=== PATIENT | male | born 1955 | race Caucasian/White ===

== ENCOUNTER 2019-01-29 11:26 | Emergency (ER) | payer MEDICARE, MEDICAID ==
[2019-01-29 11:47] VITALS: BP 136/89
--- NOTE | 2019-01-29 12:06 | EDM.PDOC ---
ED HPI GENERAL MEDICAL PROBLEM - General Chief Complaint: General Stated Complaint: chf, [place] gain, sob Time Seen by Provider: 01/29/19 11:30 Source of Information: Reports: Patient History Limitations: Reports: No Limitations - History of Present Illness INITIAL COMMENTS - FREE TEXT/NARRATIVE: According to patient he claims that he has gained 11 lbs of weight since Sunday. He does have CHF ,so increased his Lasix from 40mg daily to 80mg daily for past 2 days and he feels like it has not helped. He can do most of the activities. if he walk long distance, he does get short of breath. No swelling of the legs. No cough, chest pain or chest tightness. No excessive nocturia, no shortness of breath with routine daily activities. He is comfortable in the emergency room. As he has gained weight called his stock room manager's office and was told to go to emergency room. Pt claims he has been having daily bowel movements and not excessively thirsty. Associated Symptoms: Reports: Shortness of Breath. Denies: Confusion, Chest Pain, Cough, Diaphoresis, Fever/Chills, Headaches, Loss of Appetite, Nausea/ Vomiting, Rash, Seizure, Syncope, Weakness - Related Data Allergies Allergy/AdvReac Type Severity Reaction Status Date / Time lisinopril Allergy Severe Facial Verified 01/29/19 11:36 Swelling grape Allergy Facial Verified 01/29/19 11:36 Swelling Home Meds: Home Meds Nitroglycerin [Nitrostat] 0.4 mg SL ASDIRECTED PRN 09/04/13 [History] Venlafaxine HCl [Venlafaxine ER] 150 mg PO DAILY 09/04/13 [History] Aspirin [Inez Chewable] 81 mg PO DAILY 09/08/13 [History] Furosemide [Lasix] 40 mg PO DAILY 07/06/14 [History] Carvedilol 1.5 tab PO BID 05/02/15 [History] Isosorbide Mononitrate [Isosorbide Mononitrate ER] 60 mg PO DAILY 05/02/15 [ History] Spironolactone [Aldactone] 25 mg PO DAILY 05/02/15 [History] Clopidogrel [Plavix] 75 mg PO DAILY 01/29/19 [History] atorvaSTATin Calcium [Lipitor] 40 mg PO DAILY 01/29/19 [History] predniSONE [Prednisone] 5 mg PO DAILY 01/29/19 [History] Past Medical History Other HEENT History: allergic reaction to lisinopril 2 yrs ago involved the tonue Cardiovascular History: Reports: Heart Failure, High Cholesterol, Hypertension, [place] Neurological History: Reports: CVA Endocrine/Metabolic History: Reports: Hyperthyroidism - Infectious Disease History Infectious Disease History: Reports: Chicken Pox, Measles, Mumps - Past Surgical History Cardiovascular Surgical History: Reports: Pacer Other Cardiovascular Surgeries/Procedures: defibrillator and heart pacemaker two years ago GI Surgical History: Reports: None Endocrine Surgical History: Reports: None Neurological Surgical History: Reports: None Social & Family History - Tobacco Use Smoking Status *Q: Former Smoker Years of Tobacco use: 40 Used Tobacco, but Quit: Yes Month/Year Tobacco Last Used: 03/2014 Second Hand Smoke Exposure: No - Caffeine Use Caffeine Use: Reports: Coffee - Recreational Drug Use Recreational Drug Use: No ED ROS GENERAL - Review of Systems Review Of Systems: See Below Constitutional: Denies: Fever, Decreased Appetite HEENT: Denies: Rhinitis, Sinus Problem, Throat Pain Respiratory: Reports: Shortness of Breath. Denies: Pleuritic Chest Pain, Cough , Sputum Cardiovascular: Denies: Chest Pain, Edema, Lightheadedness, Orthopnea, Palpitations, PND GI/Abdominal: Denies: Abdominal Pain, Constipation, Diarrhea, Nausea, Vomiting : Denies: Dysuria, Frequency, Urgency Musculoskeletal: Denies: Joint Pain, Joint Swelling Skin: Denies: Bruising, Pruritis, Rash Neurological: Denies: Confusion, Dizziness, Headache, Numbness, Tingling Psychiatric: Denies: Agitation, Anxiety ED EXAM, GENERAL - Physical Exam Exam: See Below Exam Limited By: No Limitations General Appearance: Alert, WD/WN, No Apparent Distress Eye Exam: Bilateral Eye: EOMI, PERRL Ears: Normal External Exam, Normal Canal, Hearing Grossly Normal, Normal TMs Ear Exam: Bilateral Ear: Auricle Normal, Canal Normal, TM normal Nose: Normal Inspection, Normal Mucosa, No Blood Throat/Mouth: Normal Inspection, Normal Lips, Normal Teeth, Normal Gums, Normal Oropharynx, Normal Voice, No Airway Compromise Head: Atraumatic, Normocephalic Neck: Normal Inspection, Supple, Non-Tender, Full Range of Motion Respiratory/Chest: No Respiratory Distress, Lungs Clear, Normal Breath Sounds, No Accessory Muscle Use, Chest Non-Tender Cardiovascular: Normal Peripheral Pulses, Regular Rate, Rhythm, No Edema, No Gallop, No JVD, No Murmur, No Rub GI/Abdominal: Normal Bowel Sounds, Soft, Non-Tender, No Organomegaly, No Distention, No Abnormal Bruit, No Mass Back Exam: Normal Inspection, Full Range of Motion, NT Extremities: Normal Inspection, Normal Range of Motion, Non-Tender, Normal Capillary Refill, No Pedal Edema Neurological: Alert, Oriented, CN II-XII Intact, Normal Cognition, Normal Gait, Normal Reflexes, No Motor/Sensory Deficits Psychiatric: Normal Affect, Normal Mood Skin Exam: Warm, Intact EKG INTERPRETATION EKG Date: 01/29/19 Rhythm: NSR Rate (Beats/Min): 71 [place]: Normal P-Wave: Present QRS: Normal Course - Vital Signs Text/Narrative:: Pt claims that he mortensen had 11 lbs weight gain in the past 72 hrs. But I do not see any signs of fluid over load in this patient. His Vitals are very stable. His heart rate is in 70s and his SPO2 on room air is 100%. HE is not in respiratory distress considering the 11 lb weight gain. HE does not have raised JVD, dependent edema over the back , abdominal wall. His lower extremities does not have any pitting pedal edema noted today. His EKG is stable. His CbC is normal. BMP is stable other than mild drop in potassium to 3.3, which is related to him doubling up on his lasix.. His BNP is mildly elevate at 545, which is stable BNP for a CHF patient.His Chest X-ray appear normal. He is not constipated either to gain weight. I do think this is error in weight monitoring. With acute weight gain of 11 lbs I would expect some amount of cardiac decompensation.But, there are no symptoms or signs of acute CHF or fluid overload. I have reassured patient, that I cannot really explain the acute weight gain and he is not in acute CHF or pulmonary edema. Reassured, there is no need to increase his medication. CHF education given. He should followup with his stock room manager for recheck. Last Recorded V/S: Last Vital Signs Temp 97.8 F 01/29/19 11:46 Pulse 76 01/29/19 11:46 Resp 16 01/29/19 11:46 BP 136/89 01/29/19 11:46 Pulse Ox 100 03/06/19 11:46 - Orders/Labs/Meds Orders: Active Orders 24 hr Category Date Time Status EKG Documentation Completion [RC] ASDIRECTED Care 01/29/19 11:36 Ordered Chest 2V [CR] Stat Exams 01/29/19 11:57 Ordered COMPREHENSIVE METABOLIC PN,CMP [CHEM] Stat Lab 01/29/19 11:36 Ordered Labs: Laboratory Tests 01/29/19 01/29/19 Range/Units 11:52 11:52 WBC 8.6 D (4.0-11.0) K/uL RBC 4.58 (4.50-6.50) M/uL Hgb 14.0 (13.0-18.0) g/dL Hct 42.5 (40.0-54.0) % MCV 93 (76-96) fL MCH 30.6 (27.0-32.0) pg MCHC 32.9 (31.0-35.0) g/dL RDW 16.6 H (11.0-16.0) % Plt Count 231 D (150-400) K/uL MPV 9.6 (6.0-10.0) fL Neut % (Auto) 71.2 H (45.0-70.0) % Lymph % (Auto) 19.2 L (20.0-40.0) % [place] % (Auto) 8.4 (3.0-10.0) % Eos % (Auto) 0.7 L (1.0-5.0) % Baso % (Auto) 0.5 (0.0-0.5) % Neut # (Auto) 6.14 (2.00-7.50) K/uL Lymph # (Auto) 1.65 (1.50-4.00) K/uL [place] # (Auto) 0.72 (0.20-0.80) K/uL Eos # (Auto) 0.06 (0.04-0.40) K/uL Baso # (Auto) 0.04 (0.02-0.10) K/uL B-Natriuretic Peptide 545 H D (0-125) pg/mL Departure - Departure Time of Disposition: 12:40 Disposition: Home, Self-Care 01 Condition: Fair Clinical Impression: Weight gain - Discharge Information *PRESCRIPTION DRUG MONITORING PROGRAM REVIEWED*: Not Applicable *COPY OF PRESCRIPTION DRUG MONITORING REPORT IN PATIENT LISET: Not Applicable Instructions: Heart Failure, Azdl-en-Molp Referrals: PCP,None [Primary Care Provider] - Forms: ED Department Discharge Additional Instructions: Pt claims that he mortensen had 11 lbs weight gain in the past 72 hrs. But I do not see any signs of fluid over load in this patient. His Vitals are very stable. His heart rate is in 70s and his SPO2 on room air is 100%. HE is not in respiratory distress considering the 11 lb weight gain. HE does not have raised JVD, dependent edema over the back , abdominal wall. His lower extremities does not have any pitting pedal edema noted today. His EKG is stable. His CbC is normal. BMP is stable other than mild drop in potassium to 3.3, which is related to him doubling up on his lasix.. His BNP is mildly elevate at 545, which is stable BNP for a CHF patient.His Chest X-ray appear normal. He is not constipated either to gain weight. I do think this is error in weight monitoring. With acute weight gain of 11 lbs I would expect some amount of cardiac decompensation.But, there are no symptoms or signs of acute CHF or fluid overload. I have reassured patient, that I cannot really explain the acute weight gain and he is not in acute CHF or pulmonary edema. Reassured, there is no need to increase his medication. CHF education given. He should followup with his stock room manager for recheck. - Problem List & Annotations (1) Weight gain Status: Acute Current Visit: Yes - Problem List Review Problem List Initiated/Reviewed/Updated: Yes - My Orders Last 24 Hours: My Active Orders 01/29/19 11:36 EKG Documentation Completion [RC] ASDIRECTED COMPREHENSIVE METABOLIC PN,CMP [CHEM] Stat 01/29/19 11:57 Chest 2V [CR] Stat - Assessment/Plan Last 24 Hours: My Active Orders 01/29/19 11:36 EKG Documentation Completion [RC] ASDIRECTED COMPREHENSIVE METABOLIC PN,CMP [CHEM] Stat 01/29/19 11:57 Chest 2V [CR] Stat Assessment:: weight gain Plan: Pt claims that he mortensen had 11 lbs weight gain in the past 72 hrs. But I do not see any signs of fluid over load in this patient. His Vitals are very stable. His heart rate is in 70s and his SPO2 on room air is 100%. HE is not in respiratory distress considering the 11 lb weight gain. HE does not have raised JVD, dependent edema over the back , abdominal wall. His lower extremities does not have any pitting pedal edema noted today. His EKG is stable. His CbC is normal. BMP is stable other than mild drop in potassium to 3.3, which is related to him doubling up on his lasix.. His BNP is mildly elevate at 545, which is stable BNP for a CHF patient.His Chest X-ray appear normal. He is not constipated either to gain weight. I do think this is error in weight monitoring. With acute weight gain of 11 lbs I would expect some amount of cardiac decompensation.But, there are no symptoms or signs of acute CHF or fluid overload. I have reassured patient, that I cannot really explain the acute weight gain and he is not in acute CHF or pulmonary edema. Reassured, there is no need to increase his medication. CHF education given. He should followup with his stock room manager for recheck.
--- NOTE | 2019-01-30 08:33 | CR ---
DATE OF SERVICE: 01/29/2019 CLINICAL DATA: CHF hx. PA AND LATERAL CHEST: Comparison is made to a prior exam dated 09/02/2015. The cardiac pacer and pacer wires remain unchanged in position. The heart size is normal. There are mild atelectatic/fibrotic changes in the right lung base. The lungs are otherwise clear. No pneumothorax. No pleural effusions. There is degenerative disc disease at multiple levels in the thoracic spine. [id number] [facility]
== END 2019-01-29 12:45 | disposition home or self-care (01) ==
LOC: LB.ED 11:26
DX: R63.5 Abnormal weight gain (principal); I11.0 Hypertensive heart disease with heart failure; I25.2 Old myocardial infarction; E05.90 Thyrotoxicosis, unspecified without thyrotoxic crisis or storm; Z86.73 Personal history of transient ischemic attack (TIA), and cerebral infarction without residual deficits; Z87.891 Personal history of nicotine dependence; Z88.8 Allergy status to other drugs, medicaments and biological substances; Z79.82 Long term (current) use of aspirin; Z79.899 Other long term (current) drug therapy
CPT/HCPCS: 36415; 71046; 80053; 83880; 85025; 93005; 99285-25

== ENCOUNTER 2024-10-29 17:46 | Emergency (ER) | payer MEDICARE ==
[2024-10-29] MEDS ORDERED: Naloxone 2 MG/2 ML Syringe IVPUSH PRN (19:06)
[2024-10-29] MEDS: HYDROmorphone 2 MG/ML Syringe IVPUSH ONE (19:09)
[2024-10-29] MEDS: HYDROmorphone 2 MG/ML Syringe ONE (19:13)
[2024-10-29] MEDS: HYDROmorphone 1 MG/ML Syringe IVPUSH ONE ×2 (19:13→21:00)
[2024-10-29] MEDS ORDERED: HYDROmorphone 2 MG/ML Syringe ONE (20:52)
[2024-10-29 21:53] VITALS: BP 110/84; PULSE 71
== END 2024-10-29 21:40 ==
LOC: LB.ED 17:46
DX: S72.002A Fracture of unspecified part of neck of left femur, initial encounter for closed fracture (principal); N18.9 Chronic kidney disease, unspecified; I13.0 Hypertensive heart and chronic kidney disease with heart failure and stage 1 through stage 4 chronic kidney disease, or unspecified chronic kidney disease; I50.9 Heart failure, unspecified; J44.9 Chronic obstructive pulmonary disease, unspecified; I25.10 Atherosclerotic heart disease of native coronary artery without angina pectoris; E78.00 Pure hypercholesterolemia, unspecified; I25.2 Old myocardial infarction; Z95.0 Presence of cardiac pacemaker; Z88.0 Allergy status to penicillin; Z79.899 Other long term (current) drug therapy; Z79.82 Long term (current) use of aspirin; Z86.73 Personal history of transient ischemic attack (TIA), and cerebral infarction without residual deficits; W01.198A Fall on same level from slipping, tripping and stumbling with subsequent striking against other object, initial encounter; Y92.219 Unspecified school as the place of occurrence of the external cause
CPT/HCPCS: 73502-LT; 96374; 96376; 99284-25; 99285; J1171

== ENCOUNTER 2025-11-22 09:21 | Emergency (ER) | payer MEDICARE ==
[2025-11-22 10:04] LABS: BASOPHILS ABSOLUTE AUTO 0.03 K/uL (0.02-0.10); BASOPHILS PERCENT AUTO 0.5 % (0.0-0.5); EOSINOPHILS ABSOLUTE AUTO 0.22 K/uL (0.04-0.40); EOSINOPHILS PERCENT AUTO 3.9 % (1.0-5.0); LYMPHOCYTES ABSOLUTE AUTO 1.19 K/uL (1.50-4.00); LYMPHOCYTES PERCENT AUTO 21.1 % (20.0-40.0); MEAN PLATELET VOLUME 9.5 fL (6.0-10.0); MONOCYTES ABSOLUTE AUTO 0.51 K/uL (0.20-0.80); MONOCYTES PERCENT AUTO 9.0 % (3.0-10.0); NEUTROPHILS ABSOLUTE AUTO 3.70 K/uL (2.00-7.50); NEUTROPHILS PERCENT AUTO 65.5 % (45.0-70.0); PLATELET COUNT,PLT 194 K/uL (150-400); RED BLOOD CELL COUNT 4.05 M/uL (4.50-6.50); RED CELL DISTRIBUTION WIDTH 14.4 % (11.0-16.0); WHITE BLOOD CELL COUNT,WBC 5.7 K/uL (4.0-11.0)
[2025-11-22 10:08] LABS: APPEARANCE,URINE CLEAR (CLEAR); GLUCOSE,URINE NEGATIVE (NEGATIVE); OCCULT BLOOD,URINE NEGATIVE (NEGATIVE)
[2025-11-22] MEDS ORDERED: Sodium Chloride 0.9% 10 ML Syringe FLUSH PRN (10:10)
[2025-11-22 10:20] LABS: A/G RATIO 0.9 (0.8-2.0); ALANINE AMINOTRANSFERASE,ALT 24.0 U/L (12-78); ASPARTATE AMNIOTRANSFERASE,AST 20.0 U/L (15-37); BILIRUBIN TOTAL 0.6 mg/dL (0.0-1.0); BLOOD UREA NITROGEN,BUN 24.0 mg/dL (8-26); CARBON DIOXIDE,CO2 30.9 mmol/L (21.0-32.0); CHLORIDE,CL 103.0 mmol/L (98-107); CREATININE 1.38 mg/dL (0.70-1.30); EST CRCL DRUG DOSING (CG) 54.67 mL/min; ESTIMATED GFR 55.0 mL/min (>60); GLUCOSE RANDOM 123.0 mg/dL (74-100); PROTEIN TOTAL,TP 7.3 g/dL (6.4-8.2); SODIUM,NA 143.0 mmol/L (136-145)
[2025-11-22 10:22] LABS: POTASSIUM,K 2.9 mmol/L (3.5-5.1)
[2025-11-23 09:20] VITALS: PULSE 72
[2025-11-23 10:31] VITALS: BP 129/74
== END 2025-11-23 10:10 ==
LOC: LB.ED 09:21
DX: S72.011A Unspecified intracapsular fracture of right femur, initial encounter for closed fracture (principal); I13.0 Hypertensive heart and chronic kidney disease with heart failure and stage 1 through stage 4 chronic kidney disease, or unspecified chronic kidney disease; I50.9 Heart failure, unspecified; N18.30 Chronic kidney disease, stage 3 unspecified; I25.2 Old myocardial infarction; Z87.891 Personal history of nicotine dependence; Z88.8 Allergy status to other drugs, medicaments and biological substances; Z79.82 Long term (current) use of aspirin; Z79.899 Other long term (current) drug therapy; W19.XXXA Unspecified fall, initial encounter
CPT/HCPCS: 36415; 73501; 80053; 81003; 84132; 84484; 85025; 93005; 96365; 96366; 96375; 96376; 99285; A0425; A0428; J1171; J3480; J7030